=== PATIENT | female | born 1975 | race African-American/Black ===

== ENCOUNTER 2016-09-19 19:22 | Emergency (ER) | payer OTHER ==
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
[2016-09-19 20:03] LABS: URINE SOURCE CLEAN CATCH
[2016-09-19 20:09] LABS: URINE APPEARANCE CLEAR; URINE BILIRUBIN NEG (NEG); URINE BLOOD NEG (NEG); URINE COLOR YELLOW; URINE GLUCOSE NEG (NEG); URINE KETONE NEG (NEG); URINE LEUKOCYTE ESTERASE NEG (NEG); URINE NITRATE NEG (NEG); URINE PH 6.5 (5-8); URINE PROTEIN TRACE (NEG); URINE SPECIFIC GRAVITY 1.022 (1.003-1.035)
[2016-09-19 20:15] LABS: CULTURE INDICATED? NO
== END 2016-09-19 21:30 | disposition home or self-care (01) ==
LOC: CFTX 19:22
PROVIDERS: Nurse Practitioner Family
DX: S93.401A Sprain of unspecified ligament of right ankle, initial encounter (principal); S39.012A Strain of muscle, fascia and tendon of lower back, initial encounter; D21.9 Benign neoplasm of connective and other soft tissue, unspecified; V43.52XA Car driver injured in collision with other type car in traffic accident, initial encounter; Y92.410 Unspecified street and highway as the place of occurrence of the external cause
CPT/HCPCS: 29515; 72100; 73610; 81003; 84703; 99284

== ENCOUNTER → 2016-09-30 | Outpatient (CLI) | payer BC ==
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
== END | disposition home or self-care (01) ==
LOC: CGUS 07:40
DX: R10.11 Right upper quadrant pain (principal); K76.89 Other specified diseases of liver; N28.1 Cyst of kidney, acquired
CPT/HCPCS: 76700